=== PATIENT | female | born 1975 | race Hispanic/Latino ===

== ENCOUNTER 2018-02-22 18:52 | Emergency (ER) | payer BC, OTHER ==
[~2018-02-22] VITALS: Ht 170.2 cm; Wt 95.7 kg
[~2018-02-22 18:52] MED LIST: LEVOTHYROXINE PO; LEVOTHYROXINE175 MCG PO; METFORMIN PO; NORCO 5-325 TA1 EACH PO; OMEPRAZOLE PO; OXYBUTYNIN CHLO10 MG PO; [UNRECOGNIZED DRUG - OTHER] PO
[2018-02-22] MEDS ORDERED: HYDROCODONE/APAP 5MG-325MG TAB PO ONE (19:15)
[2018-02-22] MEDS ORDERED: CYCLOBENZAPRINE HCL 10 MG TAB PO ONE (19:15)
--- NOTE | 2018-02-22 20:21 | Diagnostic Imaging Report ---
Radiographs of the cervical spine - 5 views with bilateral obliques HISTORY: Pain COMPARISON: None available. FINDINGS: Bones: No acute displaced fracture. Osseous alignment is within normal limits. Joints: Scattered degenerative change. Soft tissues: The soft tissues appear unremarkable. IMPRESSION: No acute radiographic abnormality. Soft tissue injury and subtle fracture cannot be excluded based on this exam. If indicated MRI may be of benefit. Signed by: Dr. William Brito M.D. on 02/22/2018 8:18 PM
--- NOTE | 2018-02-22 20:22 | Diagnostic Imaging Report ---
Radiographs of the thoracic spine - 3 views HISTORY: Pain COMPARISON: None available. FINDINGS: Bones: No acute displaced fracture. Osseous alignment is within normal limits. Joints: Scattered degenerative change. Soft tissues: The soft tissues appear unremarkable. IMPRESSION: No acute radiographic abnormality. Signed by: Dr. William Brito M.D. on 02/22/2018 8:18 PM
== END 2018-02-22 23:34 | disposition home or self-care (01) ==
LOC: ER 18:52
DX: M54.2 Cervicalgia (principal); S16.1XXA Strain of muscle, fascia and tendon at neck level, initial encounter; M54.6 Pain in thoracic spine; V53.5XXA Driver of pick-up truck or van injured in collision with car, pick-up truck or van in traffic accident, initial encounter; Y92.488 Other paved roadways as the place of occurrence of the external cause; Z98.84 Bariatric surgery status
CPT/HCPCS: 72050; 72070; 99284